=== PATIENT | male | born 1995 | race Caucasian/White ===

== ENCOUNTER 2019-06-30 20:53 | Emergency (ER) | payer MEDICAID ==
[2019-06-30 21:09] VITALS: O2SAT 97
--- NOTE | 2019-06-30 21:10 | ERPHSYRPT ---
- History of Present Illness Time Seen by Provider: 06/30/19 21:00 Source: patient Exam Limitations: no limitations Physician History: ppatient complains of severe pain in the right ear which has been present for 3- 4 days. He has a history of occasional right ear pain in the past. He denies any sore throat sinus drainage fever chills sweats etc. Timing/Duration: gradual onset Severity: moderate ENT Location: ear (R) Prearrival Treatment: no prearrival treatment Modifying Factors: Improves With: nothing Associated Symptoms: ear pain (R) - Review of Systems Constitutional: No Fever, No Chills Eyes: No Symptoms Ears, Nose, & Throat: Ear Pain, No Nose Congestion, No Sinus Drainage, No Throat Pain, No Throat Swelling Respiratory: No Cough, No Dyspnea Cardiac: No Chest Pain, No Edema, No Syncope Abdominal/Gastrointestinal: No Abdominal Pain, No Nausea, No Vomiting, No Diarrhea Genitourinary Symptoms: No Dysuria Musculoskeletal: No Back Pain, No Neck Pain Skin: No Rash Neurological: No Dizziness, No Focal Weakness, No Sensory Changes Psychological: No Symptoms Endocrine: No Symptoms All Other Systems: Reviewed and Negative - Physical Exam General Appearance: no apparent distress, mild distress, alert Eye Exam: bilateral eye: PERRL, EOMI Ear Exam: right ear: tenderness (ttenderness of the right auricle and tragus), TM dull, TM red, left ear: auricle normal, canal normal, TM normal Nasal Exam: normal inspection Throat Exam: pharynx normal, moist mucus membranes, No tonsillar exudate Neck Exam: supple Cardiovascular/Respiratory Exam: normal breath sounds, regular rate/rhythm Abdominal Exam: non-tender, soft Neurologic Exam: alert, oriented x 3, sensation nml, No motor deficits Skin Exam: normal color, warm, dry - Progress Progress: unchanged Counseled pt/family regarding: diagnosis - Departure Departure Disposition: Home Clinical Impression: Right otitis externa Condition: Stable Critical Care Time: No Instructions: Acute Abdomen (Belly Pain), Adult (DC) Prescriptions: Amoxicillin/Potassium Clav [Augmentin 875-125 Tablet] 1 each PO BID 10 Days #20 tablet Neomy Sulf/Polymyx B Sulf/Hc [Cortisporin Ear Suspension] 2 drops OT QID 7 Days #10 bottle
[2019-06-30] MEDS ORDERED: CORTISPORIN EAR DROPS 10 ML SUSPENSION OT ONE ×2 (21:17→21:20)
[2019-06-30] MEDS ORDERED: Augmentin 875-125 Tablet PO ONE (21:18)
[2019-06-30] MEDS ORDERED: Augmentin 875-125 Tablet ONE (21:21)
[2019-06-30 21:47] VITALS: BP 165/80; PULSE 82
== END 2019-06-30 21:47 | disposition home or self-care (01) ==
LOC: ED 20:53
DX: S01.81XA Laceration without foreign body of other part of head, initial encounter (principal); W01.190A Fall on same level from slipping, tripping and stumbling with subsequent striking against furniture, initial encounter; Y93.89 Activity, other specified; Y92.9 Unspecified place or not applicable
CPT/HCPCS: 12001; 99283; A9270-GY

== ENCOUNTER 2019-07-16 20:53 | Emergency (ER) | payer MEDICAID ==
[2019-07-16] MEDS ORDERED: ZOFRAN ODT 4 MG PO ONE (21:25)
[2019-07-16] MEDS ORDERED: GI COCKTAIL 45 ML (Maalox/Lidocaine) PO ONE (21:26)
--- NOTE | 2019-07-16 21:27 | ERPHSYRPT ---
- History of Present Illness Time Seen by Provider: 07/16/19 21:25 Source: patient Exam Limitations: no limitations Physician History: 23-year-old male presents for nausea vomiting and diarrhea over the last 12-24 hours. No fevers. Mild constant epigastric burning pain that does not radiate and nothing seems to make better or worse. Child has had the same symptoms for several days in the same home. No dysuria or frequency changes. No other complaints. PMH: Historian denies chronic medical history Social: Historian versus tobacco use, counseled on cessation Allergies/Adverse Reactions: No Known Drug Allergies Allergy (Verified 07/16/19 21:30) Hx Tetanus, Diphtheria Vaccination/Date Given: No Hx Influenza Vaccination/Date Given: No Hx Pneumococcal Vaccination/Date Given: No - Review of Systems Constitutional: No Fever, No Chills Eyes: No Symptoms Ears, Nose, & Throat: No Symptoms Respiratory: No Cough, No Dyspnea Cardiac: No Chest Pain, No Edema, No Syncope Abdominal/Gastrointestinal: Abdominal Pain, Nausea, Vomiting, Diarrhea Genitourinary Symptoms: No Dysuria Musculoskeletal: No Back Pain, No Neck Pain Skin: No Rash Neurological: No Dizziness, No Focal Weakness, No Sensory Changes Psychological: No Symptoms Endocrine: No Symptoms All Other Systems: Reviewed and Negative - Past Medical History Pertinent Past Medical History: No - Past Surgical History Past Surgical History: Yes Other Surgical History: cervical neck surgery - Social History Smoking Status: Current every day smoker How long have you smoked: 1 yr Exposure to second hand smoke: Yes Drug Use: none Patient Lives Alone: No - Nursing Vital Signs Nursing Vital Signs: Initial Vital Signs Temperature 98.8 F 07/16/19 21:24 Pulse Rate 73 07/16/19 21:24 Respiratory Rate 18 07/16/19 21:24 Blood Pressure 138/88 07/16/19 21:24 O2 Sat by Pulse Oximetry 98 07/16/19 21:24 Pain Scale Pain Intensity 2 - Physical Exam General Appearance: no apparent distress, alert Eye Exam: PERRL/EOMI, eyes nml inspection Ears, Nose, Throat Exam: normal ENT inspection, TMs normal, pharynx normal, moist mucous membranes Neck Exam: normal inspection, non-tender, supple, full range of motion Respiratory Exam: normal breath sounds, lungs clear, No respiratory distress Cardiovascular Exam: regular rate/rhythm, normal heart sounds, normal peripheral pulses Gastrointestinal/Abdomen Exam: soft, normal bowel sounds, No tenderness, No mass Back Exam: normal inspection, normal range of motion, No CVA tenderness, No vertebral tenderness Extremity Exam: normal inspection, normal range of motion, pelvis stable Neurologic Exam: alert, oriented x 3, cooperative, normal mood/affect, nml cerebellar function, nml station & gait, sensation nml, No motor deficits Skin Exam: normal color, warm, dry, No rash Lymphatic Exam: No adenopathy SpO2 Interpretation: normal O2 Delivery: Room Air Ordered Tests: Medication Summary Discontinued Medications Generic Name Dose Route Start Last Admin Trade Name Freq PRN Reason Stop Dose Admin Al Hydrox/Mg Hydrox/Simethicone Confirm 07/16/19 21:36 Maalox Es 30 Ml Unit Dose Administered 07/16/19 21:37 Dose 30 ml .ROUTE .STK-MED ONE Lidocaine HCl Confirm 07/16/19 21:35 Xylocaine Hcl Viscous * Administered 07/16/19 21:36 Dose 15 ml .ROUTE .STK-MED ONE Magnesium Hydroxide 45 ml 07/16/19 21:26 07/16/19 21:38 Gi Cocktail 45 Ml (Maalox/Lidocaine) PO 07/16/19 21:27 45 ml STAT ONE Administration Ondansetron HCl 4 mg 07/16/19 21:25 07/16/19 21:38 Zofran Odt 4 Mg PO 07/16/19 21:26 4 mg STAT ONE Administration Ondansetron HCl Confirm 07/16/19 21:35 Zofran Odt 4 Mg Administered 07/16/19 21:36 Dose 4 mg .ROUTE .STK-MED ONE - Progress Progress: unchanged Progress Note: well-appearing healthy 23-year-old male. Normal vital signs no signs of dehydration. Benign abdominal exam. Afebrile. Sick contact in the home with similar symptoms. Appropriate for discharge with diagnosis of likely viral gastroenteritis. Antiemetics provided. Hydration techniques discussed. Primary care followup recommended, return precautions and moist back. No evidence of serious bacterial infection or surgical pathology of the abdomen. 07/17/19 02:32 - Departure Departure Disposition: Home Clinical Impression: Nausea & vomiting Qualifiers: Vomiting type: unspecified Vomiting Intractability: unspecified Qualified Code( s): R11.2 - Nausea with vomiting, unspecified Diarrhea Qualifiers: Diarrhea type: unspecified type Qualified Code(s): R19.7 - Diarrhea, unspecified Condition: Good Critical Care Time: No Referrals: DOCTOR,NO FAMILY [Primary Care Provider] - Instructions: Viral Gastroenteritis, Viral Gastroenteritis, Adult (DC) Prescriptions: Ondansetron ODT 4 MG [Zofran Odt 4 mg] 4 mg PO Q6H PRN PRN 3 Days #6 tab.rapdis PRN Reason: Nausea/Vomiting
[2019-07-16] MEDS ORDERED: XYLOCAINE HCl Viscous ONE (21:35)
[2019-07-16] MEDS ORDERED: ZOFRAN ODT 4 MG ONE (21:35)
[2019-07-16] MEDS ORDERED: MAALOX ES 30 ML UNIT DOSE ONE (21:36)
[2019-07-16 22:30] VITALS: BP 145/89; PULSE 84; O2SAT 97
== END 2019-07-16 22:44 | disposition home or self-care (01) ==
LOC: ED 20:53
DX: R11.2 Nausea with vomiting, unspecified (principal); R19.7 Diarrhea, unspecified; R10.13 Epigastric pain
CPT/HCPCS: 99283; Q0162; A9270-GY